=== PATIENT | female | born 1995 | race Caucasian/White ===

== ENCOUNTER 2016-10-17 17:40 | Emergency (ER) | payer OTHER ==
[2016-10-17 18:49] LABS: Urine Bacteria Absent (Absent); Urine Bilirubin Negative (Negative); Urine Glucose Negative (Negative); Urine Nitrite Positive (Negative)
[2016-10-17] MEDS ORDERED: Phenazopyridine TAB* 100 MG PO ONE (22:59)
[2016-10-17] MEDS ORDERED: NS 0.9% 1000 ML* 1,000 ML IV ONE (23:26)
[2016-10-17] MEDS ORDERED: Ondansetron INJ* 2 MG/ML VIAL IV ONE (23:28)
[2016-10-18 00:41] LABS: Hematocrit 37 % (35-47); Hemoglobin 12.2 g/dl (12.0-16.0); Mean Corpuscular HGB Conc 33 g/dl (31-36); Mean Corpuscular Hemoglobin 29 pg (27-31); Mean Corpuscular Volume 88 fL (80-97); Mean Platelet Volume 9 um3 (7.4-10.4); Red Blood Count 4.21 10^6/ul (4.0-5.4); Red Cell Distribution Width 13 % (10.5-15)
[2016-10-18 00:59] LABS: ALT 8 U/L (7-52); AST 15 U/L (13-39); Alkaline Phosphatase 73 U/L (34-104); Anion Gap 7 mmol/L (2-11); BUN/Creatinine Ratio 22.4 (8-20); Blood Urea Nitrogen 17 mg/dL (6-24); C Reactive Protein 17.66 mg/L (< 5.00); CO2 Carbon Dioxide 24 mmol/L (22-32); Calcium 8.8 mg/dL (8.6-10.3); Chloride 103 mmol/L (101-111); EGFR African American 122.4 (>60); EGFR Non-African American 95.2 (>60); Globulin 2.8 g/dL (2-4); Glucose 102 mg/dL (70-100); Lipase 17 U/L (11.0-82.0); Potassium 3.4 mmol/L (3.5-5.0); Sodium 134 mmol/L (133-145); Total Protein 6.8 g/dL (6.4-8.9)
[2016-10-18] MEDS ORDERED: Ciprofloxacin TAB* 500 MG PO ONE (01:51)
[2016-10-18] MEDS ORDERED: Ketorolac INJ* 30 MG/ML 1 ML VIAL IV PUSH ONE (01:51)
[2016-10-18 02:09] VITALS: BP 105/56
--- NOTE | 2016-10-18 08:01 | RAD ---
CLINICAL HISTORY: Dysuria, left flank pain COMPARISON: CT dated December 12, 2009 TECHNIQUE: Multiple contiguous axial CT scans were obtained of the abdomen and pelvis, without intravenous contrast enhancement. Coronal and sagittal multiplanar reformations are submitted for review. Oral contrast was not administered. The study is limited by the lack of intravenous contrast. This limits evaluation of the solid organs and vasculature. FINDINGS: LUNG BASES: The lung bases are clear. LIVER: The liver is normal in shape, size, contour, and attenuation. BILE DUCTS: There is no intrahepatic or extrahepatic biliary dilatation. GALLBLADDER: The gallbladder is normal, without pericholecystic inflammatory change. PANCREAS: The pancreas is normal, without mass or ductal dilatation. SPLEEN: Normal in size and appearance. UPPER GI TRACT: Evaluation of the gastrointestinal tract is limited by incomplete gastric distention. The upper GI tract is unremarkable. SMALL BOWEL AND MESENTERY: The small bowel is normal in contour, course, and caliber. There is no obstruction or dilatation. COLON: The colon is normal in contour, course, caliber. There is no pericolonic inflammatory change. There is large amount of stool within the colon. There is a tubular, vermiform, hollow viscus that is blind ending, and originates from the cecum, consistent with a normal appendix. There is no periappendiceal inflammatory change. This is best seen on coronal images 30 through 34. ADRENALS: Normal bilaterally. KIDNEYS: The kidneys are normal in shape, size, contour, and axis. There is no hydronephrosis or nephrolithiasis. BLADDER: The bladder is smooth in contour. PELVIC ORGANS: The uterus and adnexa are grossly normal for technique. An IUD is noted. Based on the pottery machine operator film, this appears to be malpositioned lying transversely within the endometrial cavity. AORTA: The aorta is normal. IVC: Unremarkable LYMPH NODES: There is no lymphadenopathy by size criteria. ABDOMINAL WALL: There is no evidence for abdominal wall hernia. BONES AND SOFT TISSUES: The bones and soft tissues are unremarkable. OTHER: None IMPRESSION: NO HYDRONEPHROSIS OR NEPHROLITHIASIS. MALPOSITIONED IUD
--- NOTE | 2016-10-19 09:50 | PN ---
Progress Note - Progress Note Date of Service: 10/19/16 Note: Patient urine culture grew E coli >100,000. patient placed on cipro will wait for final culture.
--- NOTE | 2016-10-21 10:18 | PN ---
Progress Note - Progress Note Date of Service: 10/21/16 Note: patient final culture shows that cipro is sensitive so no further action needed
== END 2016-10-18 02:09 | disposition home or self-care (01) ==
LOC: ED 17:40
DX: R10.84 Generalized abdominal pain (principal); R30.0 Dysuria
CPT/HCPCS: 36415; 74176; 80053; 81003; 81015; 83605; 83690; 84702; 85025; 86140; 87040; 87077; 87086; 87186; 96374; 96375; 99283; A9270-GY; J1885; J2405

== ENCOUNTER 2017-01-23 20:38 | Emergency (ER) | payer OTHER ==
[2017-01-23 23:09] LABS: Hematocrit 39 % (35-47); Hemoglobin 13.2 g/dl (12.0-16.0); Mean Corpuscular HGB Conc 34 g/dl (31-36); Mean Corpuscular Hemoglobin 29 pg (27-31); Mean Corpuscular Volume 85 fL (80-97); Mean Platelet Volume 9 um3 (7.4-10.4); Red Blood Count 4.63 10^6/ul (4.0-5.4); Red Cell Distribution Width 14 % (10.5-15); White Blood Count 7.7 10^3/ul (3.5-10.8)
[2017-01-23] MEDS: NS 0.9% 1000 ML* 2,000 ML IV ONE (23:09)
[2017-01-23 23:34] VITALS: BP 117/63
[2017-01-23 23:50] LABS: ALT 12 U/L (7-52); AST 18 U/L (13-39); Albumin 4.2 g/dL (3.2-5.2); Alkaline Phosphatase 65 U/L (34-104); Anion Gap 8 mmol/L (2-11); BUN/Creatinine Ratio 18.6 (8-20); Blood Urea Nitrogen 16 mg/dL (6-24); CO2 Carbon Dioxide 24 mmol/L (22-32); Calcium 8.9 mg/dL (8.6-10.3); Chloride 108 mmol/L (101-111); EGFR African American 106.1 (>60); EGFR Non-African American 82.5 (>60); Globulin 2.8 g/dL (2-4); Glucose 91 mg/dL (70-100); Potassium 3.6 mmol/L (3.5-5.0); Sodium 140 mmol/L (133-145)
[2017-01-24] MEDS ORDERED: Ibuprofen TAB* 600 MG PO ONE (00:06)
--- NOTE | 2017-01-24 00:47 | ED ---
Yvonne Mckeon Rebecca, scribed for [employer] on 01/23/17 at 2158 . Syncope/Near Syncope - HPI Summary HPI Summary: Pt is a 21 y/o F who presents to ED s/p syncopal episode. At approximately 2000 tonight while at work, the pt had sudden onset LOC. Per EMS, pt was unconscious for approximately 5 minutes. 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 Pt c/o L-sided neck, lumbar and umbilical abdominal pain. Reports that associated pain is currently moderate, ranked 5/10 and characterized as an ache. Reports that she has been ill recently c/o N/V/D and low-grade subjective fever. Denies CP. - History Of Current Complaint Chief Complaint: EDSyncope Time Seen by Provider: 01/23/17 21:35 Hx Obtained From: Patient Onset/Duration: Resolved Context: Witnessed - Coworkers, Loss Of Consciousness Associated Head Trauma: Yes Aggravating Factor(s): Nothing Alleviating Factor(s): Spontaneous Resolution Associated Signs And Symptoms: Pain - L-sided neck, lumbar and umbilical abdominal pain, Vomiting - Allergies/Home Medications Allergies/Adverse Reactions: Allergies Allergy/AdvReac Type Severity Reaction Status Date / Time Midazolam [From Versed] Allergy Severe Anaphylatic Verified 05/29/15 16:25 Shock Acetaminophen [From Vicodin] Allergy Hives Verified 05/29/15 16:25 Chlorpheniramine Allergy Hives Verified 05/29/15 16:25 [From Cheracol Plus] Codeine Allergy Hives Verified 05/29/15 16:25 Dextromethorphan Allergy Hives Verified 05/29/15 16:25 [From Cheracol Plus] Ethanol [From Cheracol-D] Allergy Hives Verified 05/29/15 16:25 Guaifenesin [From Cheracol-D] Allergy Hives Verified 05/29/15 16:25 Hydrocodone [From Vicodin] Allergy Hives Verified 05/29/15 16:25 Phenylpropanolamine Allergy Hives Verified 05/29/15 16:25 [From Cheracol Plus] Tramadol Allergy Swelling Verified 05/29/15 16:25 Of Face,Lips,& Throat PMH/Surg Hx/FS Hx/Imm Hx Endocrine/Hematology History: Denies: Hx Diabetes, Hx Thyroid Disease Cardiovascular History: Denies: Hx Hypertension, Hx Pacemaker/ICD Respiratory History: Reports: Hx Asthma, Hx Pneumonia Denies: Hx Chronic Obstructive Pulmonary Disease (COPD) GI History: Denies: Hx Ulcer History: Denies: Hx Renal Disease Sensory History: Denies: Hx Contacts or Glasses, Hx Hearing Aid Opthamlomology History: Denies: Hx Contacts or Glasses Neurological History: Reports: Hx Seizures, Other Neuro Impairments/Disorders - post concussion syndrome with seizure like activity Psychiatric History: Denies: Hx Panic Disorder - Surgical History Surgery Procedure, Year, and Place: t&a, acl reconstruction RIGHT KNEE - Immunization History Date of Tetanus Vaccine: UTD Infectious Disease History: No Infectious Disease History: Denies: Hx Hepatitis, Hx Human Immunodeficiency Virus (HIV), Traveled Outside the [place] in Last 30 Days - Family History Family History: copd. asthma - Social History Alcohol Use: None Substance Use Type: Reports: None Smoking Status (MU): Never Smoked Tobacco Review of Systems Positive: Fever - Low-grade subjective Negative: Chest Pain Positive: Abdominal Pain - Umbilical, Vomiting, Diarrhea, Nausea Positive: Other - L-sided neck and lumbar back pain Positive: Syncope - Positive LOC with assoicated head trauma All Other Systems Reviewed And Are Negative: Yes Physical Exam - Summary Physical Exam Summary: Appearance: Well appearing, no pain distress Skin: warm, dry, reflects adequate perfusion Head/face: normal Eyes: EOMI, KIM ENT: normal Neck: supple, nontender Respiratory: CTA, breath sounds present Cardiovascular: RRR, pulses symmetrical Abdomen: nontender, soft Bowel: present Musculoskeletal: normal, strength/ROM intact Neuro: normal, sensory motor intact, A&Ox3 Triage Information Reviewed: Yes Vital Signs On Initial Exam: Initial Vitals Temp Pulse Resp BP Pulse Ox 98.3 F 88 16 138/65 100 01/23/17 20:48 01/23/17 20:48 01/23/17 20:48 01/23/17 20:48 01/23/17 20:48 Vital Signs Reviewed: Yes - Maia Coma Scale Best Eye Response: 4 - Spontaneous Best Motor Response: 6 - Obeys Commands Best Verbal Response: 5 - Oriented Coma Scale Total: 15 Diagnostics - Vital Signs Vital Signs Temp Pulse Resp BP Pulse Ox 01/23/17 20:48 98.3 F 88 16 138/65 100 - Laboratory Result Diagrams: 01/23/17 22:57 01/23/17 22:57 Lab Statement: Any lab studies that have been ordered have been reviewed, and results considered in the medical decision making process. - CT CT Brain CT Interpretation: No Acute Changes - No acute brain parenchymal abnormality. No hemorrhage, mass or acute territorial infarct. No skull fracture. Clear visualized paranasal sinuses. Visualized mastoid air cells clear. ED physician reviewed radiology report and agrees. CT Interpretation Completed By: Radiologist CT C-Spine CT Interpretation: No Acute Changes - No acute fracture or malalignment. Multilevel sponylosis. ED physician reivewed radiology report and agrees. CT Interpretation Completed By: Radiologist - EKG 215 Cardiac Rate: NL - 93 bpm EKG Rhythm: Sinus Rhythm EKG Interpretation: No acute changes Re-Evaluation - Re-Evaluation First Eval Re-Evaluation Time: 00:04 Comment: Discussing results and plan to D/C pt Course/Dx Assessment/Plan: Pt is a 21 y/o F who presents to ED s/p syncopal episode of sudden onset LOC at approximately 2000 tonight while at work. Per EMS, pt was unconscious for approximately 5 minutes. 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 Pt c/o moderate L-sided neck, lumbar and umbilical abdominal pain with pain characterized as an ache. Reports that she has been ill recently c/o N/V/D and low-grade subjective fever. Denies CP. Brain CT and C -Spine CT reveal no acute findings. EKG is sinus rhythm with no acute changes. In the ED course, pt received Ibuprofen and fluids. She will be D/C to home with Dx of hea dinjury and syncope with Rx for Motrin and a follow up with her PCP. She understands and agrees. Allergies noted. Elevated BP noted and advised to f/u with PCP. - Diagnoses Provider Diagnoses: Syncope, Head injury Discharge - Discharge Plan Condition: Stable Disposition: HOME Prescriptions: Ibuprofen TAB* [Motrin TAB* 600 MG] 600 mg PO Q8H PRN #20 tab MDD 3 PRN Reason: Pain Patient Education Materials: Syncope (ED), Head Injury (ED) Referrals: Shilo Ayala MD [Primary Care Provider] - 3 Days The documentation as recorded by the Yvonne mahoney Rebecca accurately reflects the service I personally performed and the decisions made by me, Fan Horner.
--- NOTE | 2017-01-24 08:06 | RAD ---
HISTORY: Head injury, syncope, fall COMPARISONS: Head CT dated November 12, 2005 TECHNIQUE: Multiple contiguous axial CT scans were obtained of the head without intravenous contrast. FINDINGS: HEMORRHAGE/INFARCT: There is no hemorrhage or acute infarct. MASSES/SHIFT: There is no mass or shift. EXTRA-AXIAL SPACES: There are no extra-axial fluid collections. SULCI AND VENTRICLES: The sulci and ventricles are normal in size and position for the patient's stated age. CEREBRUM: There are no focal parenchymal abnormalities. BRAINSTEM: There are no focal parenchymal abnormalities. CEREBELLUM: There are no focal parenchymal abnormalities. VESSELS: The vessels are grossly normal. PARANASAL SINUSES: The paranasal sinuses are clear. ORBITS: The orbits are unremarkable. BONES AND SOFT TISSUE: No bone or soft tissue abnormalities are noted. OTHER: None IMPRESSION: NO ACUTE INTRACRANIAL PATHOLOGY.
--- NOTE | 2017-01-24 08:08 | RAD ---
HISTORY: Fall, syncope, neck pain, trauma COMPARISONS: None TECHNIQUE: Multiple contiguous axial CT scans were obtained of the cervical spine without intravenous contrast, with coronal and sagittal multiplanar reformations. FINDINGS: BRAIN: The visualized brain is unremarkable CENTRAL CANAL: Evaluation of the central canal is limited on CT technique, however there is no obvious canalicular mass or epidural hemorrhage. ALIGNMENT: The alignment is normal, without subluxation or dislocation. VERTEBRAL BODIES: The odontoid process is intact. The atlantoaxial intervals are symmetric. The vertebral bodies are normal in attenuation, without fracture. JOINTS: There is no subluxation or dislocation MUSCULATURE: Unremarkable INTERVERTEBRAL DISCS: There is diffuse loss of intervertebral disc height. AXIAL IMAGES: On axial images, there is no osseous neural foraminal narrowing or central canal stenosis. SOFT TISSUES: The visualized soft tissues of the neck are unremarkable. The prevertebral fat stripe is preserved. OTHER: None. IMPRESSION: MILD DEGENERATIVE DISC DISEASE. NO ACUTE OSSEOUS INJURY TO THE CERVICAL SPINE
== END 2017-01-24 00:31 | disposition home or self-care (01) ==
LOC: ED 20:38
DX: S09.90XA Unspecified injury of head, initial encounter (principal); M50.320 Other cervical disc degeneration, mid-cervical region, unspecified level; R55 Syncope and collapse; R11.2 Nausea with vomiting, unspecified; R19.7 Diarrhea, unspecified; X58.XXXA Exposure to other specified factors, initial encounter; Y93.9 Activity, unspecified; Y92.9 Unspecified place or not applicable
CPT/HCPCS: 36415; 70450; 72125; 80053; 83735; 84484; 84702; 85025; 93005; 99283; A9270-GY

== ENCOUNTER 2017-04-03 11:07 | Emergency (ER) | payer OTHER | END 2017-04-03 15:07 | disposition left against medical advice (07) | LOC: UCEAST 11:07 | DX: R05 Cough (principal); Z53.21 Procedure and treatment not carried out due to patient leaving prior to being seen by health care provider ==

== ENCOUNTER 2017-04-04 10:00 | Emergency (ER) | payer OTHER, MEDICAID ==
[2017-04-04 10:41] VITALS: BP 127/65
--- NOTE | 2017-04-04 11:16 | UC ---
Respiratory Complaint HPI - HPI Summary HPI Summary: Pt presents with a cough. She tells me that she developed a dry cough about 1 week ago that, over the last 2-3 days, has progressed to a productive cough. She feels as though she cannot "get a good breath" and is coughing "non-stop". She has vomiting once from coughing so much. She denies fever, chills, sinus symptoms, ST, chest pain, abdominal pain, N/D/C. She does have an albuterol inhaler at home, but it has been empty for some time. - History of Current Complaint Chief Complaint: UCRespiratory Stated Complaint: CONGESTED,COUGH Time Seen by Provider: 04/04/17 11:09 Hx Obtained From: Patient Hx Last Menstrual Period: 05/19/15 Onset/Duration: Gradual Onset Severity Initially: Mild Severity Currently: Moderate Character: Cough: Productive - Allergies/Home Medications Allergies/Adverse Reactions: Allergies Allergy/AdvReac Type Severity Reaction Status Date / Time Midazolam [From Versed] Allergy Severe Anaphylatic Verified 04/04/17 10:41 Shock Acetaminophen [From Vicodin] Allergy Hives Verified 04/04/17 10:41 Chlorpheniramine Allergy Hives Verified 04/04/17 10:41 [From Cheracol Plus] Codeine Allergy Hives Verified 04/04/17 10:41 Dextromethorphan Allergy Hives Verified 04/04/17 10:41 [From Cheracol Plus] Ethanol [From Cheracol-D] Allergy Hives Verified 04/04/17 10:41 Guaifenesin [From Cheracol-D] Allergy Hives Verified 04/04/17 10:41 Hydrocodone [From Vicodin] Allergy Hives Verified 04/04/17 10:41 Phenylpropanolamine Allergy Hives Verified 04/04/17 10:41 [From Cheracol Plus] Tramadol Allergy Swelling Verified 04/04/17 10:41 Of Face,Lips,& Throat PMH/Surg Hx/FS Hx/Imm Hx Previously Healthy: Yes Respiratory History: Asthma - Surgical History Surgical History: Yes Surgery Procedure, Year, and Place: t&a. acl reconstruction RIGHT KNEE - Family History Known Family History: Positive: None Family History: copd. asthma - Social History Occupation: Employed Full-time Lives: With Family Alcohol Use: None Substance Use Type: None Smoking Status (MU): Never Smoked Tobacco Review of Systems Constitutional: Negative Skin: Negative Eyes: Negative ENT: Negative Respiratory: Cough Cardiovascular: Negative Gastrointestinal: Negative Neurological: Negative Psychological: Negative All Other Systems Reviewed And Are Negative: Yes Physical Exam Triage Information Reviewed: Yes Appearance: Well-Appearing, Well-Nourished Vital Signs: Initial Vital Signs Temp 97.9 F 04/04/17 10:38 Pulse 105 04/04/17 10:38 Resp 18 04/04/17 10:38 BP 127/65 04/04/17 10:38 Pulse Ox 100 04/04/17 10:38 Vital Signs Reviewed: Yes Eyes: Positive: Conjunctiva Clear. Negative: Conjunctiva Inflamed, Discharge ENT: Positive: Hearing grossly normal, Pharynx normal, TMs normal, Uvula midline. Negative: Pharyngeal erythema, Nasal congestion, Nasal drainage, TM bulging, TM dull, TM red, Tonsillar swelling, Tonsillar exudate, Muffled voice, Hoarse voice, Sinus tenderness Neck: Positive: Supple, Nontender, No Lymphadenopathy Respiratory: Positive: Chest non-tender, No respiratory distress, No accessory muscle use, Decreased breath sounds - Throughout but RLL > Left, Wheezing - Throughout. Negative: Crackles, Rhonchi Cardiovascular: Positive: RRR, No Murmur, Pulses Normal Neurological: Positive: Alert. Negative: Fatigued Psychological: Positive: Age Appropriate Behavior Skin: Negative: rashes UC Diagnostic Evaluation - Laboratory O2 Sat by Pulse Oximetry: 100 Re-Evaluation - Re-Evaluation First Eval Re-Evaluation Time: 11:30 Change: Improved Comment: S/p duoneb. Lung sounds improved, but still with diffuse wheezing. Pt reported that her lungs felt "less tight" Respiratory Course/Dx - Course Course Of Treatment: CXR - negative. Duoneb - Lung sounds improved, but still with diffuse wheezing. Pt reported that her lungs felt "less tight". I would like to refill her albuterol inhaler and place her on a steroid for potential bronchitis vs asthma exacerbation - however she tells me that she has a history of hypokalemia. Will rx for albuterol and doxycycline to cover any atypical organisms and have her f/u with her PCP next week if her symptoms worsen or do not improve in 48 hours. - Differential Dx/Diagnosis Differential Diagnosis/HQI/PQRI: Asthma, Bronchitis, Influenza, Lower Resp Infection Provider Diagnoses: Asthma exacerbation Discharge - Discharge Plan Condition: Stable Disposition: HOME Prescriptions: Albuterol HFA INHALER* [Ventolin HFA Inhaler*] 1 - 2 puff INH Q6H PRN #1 mdi PRN Reason: Wheezing DOXYcycline CAP(*) [DOXYcycline 100MG CAP(*)] 100 mg PO BID #14 cap Patient Education Materials: Acute Bronchitis (ED) Referrals: No Primary Care Phys,NOPCP [Primary Care Provider] - Additional Instructions: If you develop a fever, SOB, chest pain, new or worsening symptoms - please call your PCP or go to the ED.
--- NOTE | 2017-04-04 11:42 | RAD ---
INDICATION: Cough COMPARISON: None TECHNIQUE: PA and lateral dual-energy views were obtained. FINDINGS: Bones/Soft Tissues: There are no acute bony findings. Cardiomediastinal: The cardiomediastinal silhouette is normal. Lungs: There are no infiltrates. Pleura: There are no pleural effusions. Other: None IMPRESSION: NEGATIVE EXAMINATION.
[2017-04-04] MEDS ORDERED: Albuterol/Ipratropium NEB.SOL* Albuterol 2.5 MG/Ipratropium 0.5 MG 3 ML INH ONE (11:44)
== END 2017-04-04 12:27 | disposition home or self-care (01) ==
LOC: UCEAST 10:00
DX: J45.901 Unspecified asthma with (acute) exacerbation (principal)
CPT/HCPCS: 71020; 99212; A9270-GY; G0463

== ENCOUNTER 2017-04-23 12:15 | Emergency (ER) | payer MEDICAID, OTHER ==
--- NOTE | 2017-04-23 14:12 | UC ---
Abdominal Pain Female HPI - HPI Summary HPI Summary: 21 y/o female presents with RUQ pain that started 2 days ago after eating. She tells me that 2 days ago she at a [employer] meal, soon thereafter developed RUQ "cramping" and "gnawing" pain. She has never had this before. Since that time, every time she eats, she feels nauseous and has various degrees of this pain in her RUQ. When she has this pain after eating, the pain is most severe for the next 30minutes to an hour and then will subside to dull ache/cramp. Her bowel movements have been regular, no constipation or loose stools, and do not change her pain. She denies fever, chills, dizziness, headache, SOB, chest pain, vomiting, constipation, diarrhea, dysuria, or recent illness. No history of abdominal surgeries or gallstones. - History of Current Complaint Chief Complaint: UCGeneralIllness Stated Complaint: ABD PAIN Time Seen by Provider: 04/23/17 14:11 Hx Obtained From: Patient Hx Last Menstrual Period: 05/19/15 Onset/Duration: Sudden Onset Timing: Constant Severity Initially: Moderate Severity Currently: Moderate Pain Intensity: 6 Pain Scale Used: 0-10 Numeric Location: Discrete At: RUQ Character: Colicy, Cramping Aggravating Factor(s): Food Alleviating Factor(s): Spontaneous Resolution, NPO Allergies/Adverse Reactions: Allergies Allergy/AdvReac Type Severity Reaction Status Date / Time Midazolam [From Versed] Allergy Severe Anaphylatic Verified 04/23/17 12:29 Shock Acetaminophen [From Vicodin] Allergy Hives Verified 04/23/17 12:29 Chlorpheniramine Allergy Hives Verified 04/23/17 12:29 [From Cheracol Plus] Codeine Allergy Hives Verified 04/23/17 12:29 Dextromethorphan Allergy Hives Verified 04/23/17 12:29 [From Cheracol Plus] Ethanol [From Cheracol-D] Allergy Hives Verified 04/23/17 12:29 Guaifenesin [From Cheracol-D] Allergy Hives Verified 04/23/17 12:29 Hydrocodone [From Vicodin] Allergy Hives Verified 04/23/17 12:29 Phenylpropanolamine Allergy Hives Verified 04/23/17 12:29 [From Cheracol Plus] Tramadol Allergy Swelling Verified 04/23/17 12:29 Of Face,Lips,& Throat PMH/Surg Hx/FS Hx/Imm Hx Previously Healthy: Yes Respiratory History: Asthma - Surgical History Surgical History: Yes Surgery Procedure, Year, and Place: t&a. acl reconstruction RIGHT KNEE - Family History Known Family History: Positive: None Family History: copd. asthma - Social History Occupation: Employed Full-time Lives: With Family Alcohol Use: None Substance Use Type: None Smoking Status (MU): Never Smoked Tobacco Review of Systems Constitutional: Negative Skin: Negative Respiratory: Negative Cardiovascular: Negative Gastrointestinal: Abdominal Pain - RUQ Genitourinary: Negative Musculoskeletal: Negative Neurological: Negative Psychological: Negative All Other Systems Reviewed And Are Negative: Yes Physical Exam Triage Information Reviewed: Yes Appearance: Well-Appearing, No Pain Distress, Well-Nourished Vital Signs: Initial Vital Signs Temp 97.8 F 04/23/17 12:30 Pulse 101 04/23/17 12:30 Resp 18 04/23/17 12:30 BP 118/66 04/23/17 12:30 Pulse Ox 100 04/23/17 12:30 Vital Signs Reviewed: Yes Neck: Positive: Supple, Nontender, No Lymphadenopathy Respiratory: Positive: Chest non-tender, Lungs clear, Normal breath sounds, No respiratory distress, No accessory muscle use Cardiovascular: Positive: RRR, No Murmur, Pulses Normal Abdomen Description: Positive: No Organomegaly, Soft, Other: - RUQ TTP. Crouch' s sign positive.. Negative: CVA Tenderness (R), CVA Tenderness (L), Distended, Guarding, Hepatomegaly, McBurney's Point Tenderness, Peritoneal Signs, Pulsatile Mass, Splenomegaly Bowel Sounds: Positive: Present Neurological: Positive: Alert Psychological: Positive: Age Appropriate Behavior Skin: Positive: Other - No ecchymosis, erythema, rashes, or significant lesions on the abdomen. Abd Pain Female Course/Dx - Course Course Of Treatment: I suspect she is suffering from biliary colic. I discussed with her the potential treatment options such as conservative care, gallstone mediations, and surgical removal. However, first she would need confirmation, likely by ultrasound, and evaluation by general surgery. Ultrasound is unavailable at this location at this time. Since she is afebrile, stable and is not in current distress - Will refer to general surgery and have her follow up there. If symptoms persist or worsen - to go to the ED. - Differential Dx/Diagnosis Differential Diagnosis: Gall Bladder Disease, Peptic Ulcer Disease Provider Diagnoses: Biliary colic Discharge - Discharge Plan Condition: Stable Disposition: HOME Patient Education Materials: Biliary Colic (ED) Referrals: No Primary Care Phys,NOPCP [Primary Care Provider] - Eleno Turcios MD [Medical Doctor] - As Soon As Possible Additional Instructions: If you develop a fever, shortness of breath, chest pain, new or worsening symptoms - please call your PCP or go to the ED. 1) Please avoid fatty foods such as butter, oils, or friend substances. These may cause your symptoms to worsen. 2) Tylenol OTC for pain/discomfort 3) Please call the number below to schedule a follow up appointment with the General Surgeon in regards to your RUQ pain. 4) If you develop fever, vomiting, increased pain, or inability to retain food/ drink - please go directly to the ER.
[2017-04-23 14:30] VITALS: BP 118/63
== END 2017-04-23 14:30 | disposition home or self-care (01) ==
LOC: UCEAST 12:15
DX: K80.50 Calculus of bile duct without cholangitis or cholecystitis without obstruction (principal); Z88.5 Allergy status to narcotic agent; Z88.8 Allergy status to other drugs, medicaments and biological substances; Z88.4 Allergy status to anesthetic agent
CPT/HCPCS: 87502; 99212; G0463

== ENCOUNTER 2017-05-14 12:53 | Emergency (ER) | payer OTHER ==
[2017-05-14 13:30] VITALS: BP 119/70
--- NOTE | 2017-05-14 13:43 | UC ---
Upper Extremity HPI - HPI Summary HPI Summary: 21F presents with left wrist pain for three weeks. She was lifting someone out of the car with her left wrist under his arm. She states since then she has walton pain over the radial side of the wrist over her thumb with swelling there. She is right handed. She denies any numbness or tingling. She denies any previous injury to the area. She states her thumb has been popping when tries to move it toward ulnar aspect. - History of Current Complaint Chief Complaint: UCUpperExtremity Stated Complaint: LEFT WRIST INJURY Time Seen by Provider: 05/14/17 13:25 Hx Last Menstrual Period: PRESENT Pain Intensity: 6 - Allergies/Home Medications Allergies/Adverse Reactions: Allergies Allergy/AdvReac Type Severity Reaction Status Date / Time Midazolam [From Versed] Allergy Severe Anaphylatic Verified 05/14/17 13:30 Shock Acetaminophen [From Vicodin] Allergy Hives Verified 05/14/17 13:30 Chlorpheniramine Allergy Hives Verified 05/14/17 13:30 [From Cheracol Plus] Codeine Allergy Hives Verified 05/14/17 13:30 Dextromethorphan Allergy Hives Verified 05/14/17 13:30 [From Cheracol Plus] Ethanol [From Cheracol-D] Allergy Hives Verified 05/14/17 13:30 Guaifenesin [From Cheracol-D] Allergy Hives Verified 05/14/17 13:30 Hydrocodone [From Vicodin] Allergy Hives Verified 05/14/17 13:30 Phenylpropanolamine Allergy Hives Verified 05/14/17 13:30 [From Cheracol Plus] Tramadol Allergy Swelling Verified 05/14/17 13:30 Of Face,Lips,& Throat PMH/Surg Hx/FS Hx/Imm Hx Endocrine History: Other Other Endocrine History: no DM Cardiovascular History: Other Other Cardiovascular History: no HTN - Surgical History Surgical History: Yes Surgery Procedure, Year, and Place: t&a. acl reconstruction RIGHT KNEE - Family History Known Family History: Positive: None Family History: copd. asthma - Social History Alcohol Use: None Substance Use Type: None Smoking Status (MU): Never Smoked Tobacco Review of Systems Constitutional: Negative Musculoskeletal: Decreased ROM - left wrist All Other Systems Reviewed And Are Negative: Yes Physical Exam Triage Information Reviewed: Yes Appearance: Well-Appearing Vital Signs: Initial Vital Signs Temp 98.1 F 05/14/17 13:24 Pulse 80 05/14/17 13:24 Resp 18 05/14/17 13:24 BP 119/70 05/14/17 13:24 Pulse Ox 100 05/14/17 13:24 Vital Signs Reviewed: Yes ENT Exam: Normal Respiratory: Positive: Lungs clear, Normal breath sounds Cardiovascular: Positive: RRR Musculoskeletal: Positive: ROM Limited @ - towards ulnar aspect of wrist, Other : - tenderness over radial aspect of left wrist, pos uday, good pulses, sensation grossly intact, capillary refill<2 secs Neurological Exam: Normal Psychological Exam: Normal Skin Exam: Normal Diagnostics - Radiology wrist Xray Interpretation: No Acute Changes Radiology Interpretation Completed By: ED Physician Upper Extremity Course/Dx - Course Course Of Treatment: 21F presents with left wrist pain for three weeks. She was lifting someone out of the car with her left wrist under his arm. She states since then she has walton pain over the radial side of the wrist over her thumb with swelling there. She is right handed. She denies any numbness or tingling. She denies any previous injury to the area. She states her thumb has been popping when tries to move it toward ulnar aspect. on exam tenderness over radial aspect of left wrist. neurovascular intact. pos uday test. neg snuff box tenderness. xray normal. will treat with thumb spica and gave referral to ortho. medication reviewed. patient understand and agrees with plan. - Differential Dx/Diagnosis Differential Diagnosis/HQI/PQRI: Fracture (Closed), Strain, Sprain Provider Diagnoses: de Quervain tendiopathy Discharge - Discharge Plan Condition: Good Disposition: HOME Patient Education Materials: De Quervain Disease (ED) Referrals: [facility]FERRAL [Outside] Karla Emerson MD [Medical Doctor] - Additional Instructions: Keep splint on area Take Tylenol or ibuprofen every 6 hours as needed for pain Apply ice, rest, elevate Follow up with ortho Return to ED if develop any new or worsening symptoms
--- NOTE | 2017-05-14 14:03 | RAD ---
INDICATION: Left wrist pain COMPARISON: None TECHNIQUE: AP, lateral, and oblique views were obtained. FINDINGS: The bony structures, joint spaces, and soft tissues are normal for age. IMPRESSION: NEGATIVE EXAMINATION.
== END 2017-05-14 14:11 | disposition home or self-care (01) ==
LOC: UCCORT 12:53
DX: M65.4 Radial styloid tenosynovitis [de Quervain] (principal)
CPT/HCPCS: 99212; G0463

== ENCOUNTER 2017-09-16 10:48 | Emergency (ER) | payer OTHER ==
[2017-09-16 11:04] VITALS: BP 119/62
--- NOTE | 2017-09-16 11:22 | UC ---
Complaint Female HPI - HPI Summary HPI Summary: Pelvic cramping for about a week. Mild white milky discharge. She is about 10 weeks into a dep[facility] LMP was august 11 and she took home which was positive. She denies fever, vomiting, diarrhea , urinary symptoms, pain with intercourse. She has a steady sexual partner. This is her 4th , one spontaneous misscarriage of twins and two children at home. NO prior abd surgery. Prior chlamydia in a prior relationship. - History Of Current Complaint Chief Complaint: UCGU Stated Complaint: CRAMPING Time Seen by Provider: 09/16/17 11:07 Hx Obtained From: Patient Hx Last Menstrual Period: 08/11/17 Onset/Duration: Gradual Onset, Lasting Weeks Timing: Constant, Intermittent Severity Initially: Moderate Severity Currently: Moderate Pain Intensity: 7 Character: Cramping Aggravating Factor(s): Nothing Alleviating Factor(s): Nothing Associated Signs And Symptoms: Negative: Fever, Back Pain, Vaginal Bleeding/ Discharge, Vaginal Discharge, Nausea, Vomiting(# Of Episodes =), Genital Swelling, Genital Blisters, Retained Foregin Body (Specify) - Allergies/Home Medications Allergies/Adverse Reactions: Allergies Allergy/AdvReac Type Severity Reaction Status Date / Time acetaminophen [From Vicodin] Allergy Hives Verified 09/16/17 11:02 codeine Allergy Hives Verified 09/16/17 11:02 dextromethorphan Allergy Hives Verified 09/16/17 11:02 [From Cheracol D] guaifenesin [From Cheracol D] Allergy Hives Verified 09/16/17 11:02 hydrocodone [From Vicodin] Allergy Hives Verified 09/16/17 11:02 hydrocortisone Allergy Hives Verified 09/16/17 11:02 [From Hydrocortone] midazolam Allergy Anaphylatic Verified 09/16/17 11:02 Shock tramadol Allergy Swelling Verified 09/16/17 11:02 Of Face,Lips,& Throat PMH/Surg Hx/FS Hx/Imm Hx Previously Healthy: No - Surgical History Surgical History: Yes Surgery Procedure, Year, and Place: t&a. acl reconstruction RIGHT KNEE - Family History Known Family History: Positive: None Family History: copd. asthma - Social History Lives: With Family Alcohol Use: None Substance Use Type: None Smoking Status (MU): Never Smoked Tobacco Review of Systems Gastrointestinal: Abdominal Pain Genitourinary: Vaginal/Penile Discharge All Other Systems Reviewed And Are Negative: Yes Physical Exam Triage Information Reviewed: Yes Appearance: Well-Appearing, Well-Nourished, Pain Distress - She holds her periumbilical area at times. Vital Signs: Initial Vital Signs Temp 98.4 F 09/16/17 11:00 Pulse 102 09/16/17 11:00 Resp 15 09/16/17 11:00 BP 119/62 09/16/17 11:00 Pulse Ox 100 09/16/17 11:00 Vital Signs Reviewed: Yes Eyes: Positive: Conjunctiva Clear. Negative: Conjunctiva Inflamed ENT: Positive: Pharynx normal, Uvula midline Neck: Positive: Supple, Nontender, No Lymphadenopathy Respiratory: Positive: Lungs clear, Normal breath sounds, No respiratory distress, No accessory muscle use. Negative: Respiratory distress, Decreased breath sounds, Accessory muscle use, Crackles, Rhonchi, Stridor Cardiovascular: Positive: No Murmur, Pulses Normal Abdominal Exam: Other - there is tenderness without guarding of the periumbilical area. Abdomen Description: Positive: No Organomegaly, Soft. Negative: CVA Tenderness (R), CVA Tenderness (L), Distended, Guarding Pelvic Exam: Positive: External Exam Normal, Speculum Exam Normal, Bimanual Exam Normal, No Cerv. Motion Tender, No Masses. Negative: Active Bleeding, Cervicitis, Discharge, Mass, Tender w/ Cervical Motion, Tender Adnexa, Tender Uterus Musculoskeletal: Positive: Strength Intact, ROM Intact, No Edema Psychological Exam: Normal Psychological: Positive: Age Appropriate Behavior Skin: Negative: rashes Diagnostics - Radiology No standard instances Xray Interpretation: No Acute Changes Radiology Interpretation Completed By: Radiologist - possible early IUP Complaint Female Dx - Course Course Of Treatment: high risk ectopic due to unplanned with hx of chlamydia infection. HOwever, there is suggestion of IUP on ultrasound. To be sure, she will need repeat hcg and ultrasound in two days. We have called Dr. Saucedo's office who agrees to set up outpatient labs and ultrasound. Pt agrees that if this does not occur, she will report to pcp or ED or here for repeat testing. We will cover with antibiotics given cramping and higher risk history. Initial OB appt has also been made for 10/27 at 140pm. - Differential Dx/Diagnosis Provider Diagnoses: pelvic pain. early . rule out ectopic. Discharge - Sign-Out/Discharge Documenting (check all that apply): Discharge/Admit/Transfer - Discharge Plan Condition: Good Disposition: HOME Patient Education Materials: Pelvic Pain (ED) Referrals: No Primary Care Phys,NOPCP [Primary Care Provider] - Eleno Saucedo MD [Medical Doctor] - Additional Instructions: F/u with Dr. Saucedo on 10/27 and 1:40pm. - Billing Disposition and Condition Condition: GOOD Disposition: HOME
--- NOTE | 2017-09-16 12:21 | RAD ---
INDICATION: Early -5 weeks COMPARISON: None TECHNIQUE: Transvaginal scans were obtained for determination FINDINGS: There is an intrauterine gestational sac and pelvic sac. The sac size corresponds to 5 week 1 day gestation. There is no identification of the pole although this could be related to early age of the gestation. Suggest follow-up ultrasonography to assess for viability. The ovaries appear normal. The right ovary measures 3.6 x 2.1 x 2.2 cm and the left 3.1 x 2.0 x 2.7 cm. There is no separate adnexal mass There is no free fluid. IMPRESSION: PROBABLE EARLY INTRAUTERINE GESTATION. SUGGEST CORRELATION WITH SERIAL BETA HCGS AND FOLLOW-UP ULTRASONOGRAPHY TO ASSESS FOR VIABILITY
[2017-09-16] MEDS ORDERED: metroNIDAZOLE TAB* 250 MG PO ONE (12:28)
[2017-09-16] MEDS ORDERED: Azithromycin TAB* 250 MG PO ONE (12:29)
[2017-09-16] MEDS ORDERED: cefTRIAXone VIAL(*) 250 MG VIAL IM ONE (12:29)
[2017-09-16] MEDS ORDERED: Lidocaine 1%* 5 ML VIAL ONE (12:40)
[2017-09-16 19:00] LABS: ABS Basophils 0 10^3/ul (0-0.2); ABS Eosinophils 0 10^3/ul (0-0.6); ABS Lymphocytes 1.3 10^3/ul (1.0-4.8); ABS Monocytes 0.3 10^3/ul (0-0.8); ABS Neutrophils 3.6 10^3/ul (1.5-7.7); ABS Nucleated RBC 0 10^3/ul; Eosinophil % 0.8 % (0-6); Hematocrit 39 % (35-47); Hemoglobin 12.6 g/dl (12.0-16.0); Mean Corpuscular HGB Conc 33 g/dl (31-36); Mean Corpuscular Hemoglobin 28 pg (27-31); Mean Corpuscular Volume 85 fL (80-97); Mean Platelet Volume 8.9 um3 (7.4-10.4); Nucleated Red Blood Cells % 0; Platelet Count 245 10^3/ul (150-450); Red Blood Count 4.55 10^6/ul (4.0-5.4); Red Cell Distribution Width 15 % (10.5-15); White Blood Count 5.3 10^3/ul (3.5-10.8)
--- NOTE | 2017-09-17 07:46 | UC ---
- Progress Note Progress Note: Reviewed notes-intrauterine not seen on USS, has risk of ectopic. Her HCG is 4600. Advise that she should contact OB office to ensure that follow up USS and repeat BHCG done. Should have follow up tomorrow 09/18/17. Discharge - Sign-Out/Discharge Documenting (check all that apply): Discharge/Admit/Transfer - Discharge Plan Condition: Good Disposition: HOME Patient Education Materials: Pelvic Pain (ED) Referrals: Eleno Saucedo MD [Medical Doctor] - No Primary Care Phys,NOPCP [Primary Care Provider] - Additional Instructions: F/u with Dr. Saucedo on 10/27 and 1:40pm. - Billing Disposition and Condition Condition: GOOD Disposition: HOME
--- NOTE | 2017-09-18 11:01 | UC ---
- Progress Note Progress Note: (+) BV / garnderella -- needs to be on flagyl 500 mg PO BID for 7 days -- if not already taking then I can send in med f/u with OB as planned Discharge - Sign-Out/Discharge Documenting (check all that apply): Discharge/Admit/Transfer - Discharge Plan Condition: Good Disposition: HOME Patient Education Materials: Pelvic Pain (ED) Referrals: Eleno Saucedo MD [Medical Doctor] - No Primary Care Phys,NOPCP [Primary Care Provider] - Additional Instructions: F/u with Dr. Saucedo on 10/27 and 1:40pm. - Billing Disposition and Condition Condition: GOOD Disposition: HOME
--- NOTE | 2017-09-18 11:07 | UC ---
- Progress Note Progress Note: pt was treated with flagyl, rocephin and azithromycin -- no further treatment at this time and f/u with ACUTE CARE ASSISTANT/OB for her possible IUP Discharge - Sign-Out/Discharge Documenting (check all that apply): Discharge/Admit/Transfer - Discharge Plan Condition: Good Disposition: HOME Patient Education Materials: Pelvic Pain (ED) Referrals: Lewis ROMANO,Eleno [Medical Doctor] - No Primary Care Phys,NOPCP [Primary Care Provider] - Additional Instructions: F/u with Dr. Saucedo on 10/27 and 1:40pm. - Billing Disposition and Condition Condition: GOOD Disposition: HOME
--- NOTE | 2017-09-19 07:21 | UC ---
- Progress Note Progress Note: urine + Staph epidermidis sensitive to Cefazolin - will call in RX keflex if pt has not followed-up with OB as instructed please call pt for update lorraine 09/19/17 7:21 Discharge - Sign-Out/Discharge Documenting (check all that apply): Post-Discharge Follow Up - Discharge Plan Condition: Good Disposition: HOME Patient Education Materials: Pelvic Pain (ED) Referrals: Eleno Saucedo MD [Medical Doctor] - No Primary Care Phys,NOPCP [Primary Care Provider] - Additional Instructions: F/u with Dr. Saucedo on 10/27 and 1:40pm. - Billing Disposition and Condition Condition: GOOD Disposition: HOME
== END 2017-09-16 12:58 | disposition home or self-care (01) ==
LOC: UCCORT 10:48
DX: O26.899 Other specified pregnancy related conditions, unspecified trimester (principal); N76.0 Acute vaginitis; Z3A.00 Weeks of gestation of pregnancy not specified; R10.2 Pelvic and perineal pain; Z88.6 Allergy status to analgesic agent; Z88.5 Allergy status to narcotic agent; Z88.8 Allergy status to other drugs, medicaments and biological substances
CPT/HCPCS: 36415; 76817; 80053; 81003; 84144; 84443; 84702; 85025; 87077; 87086; 87186; 87480; 87491; 87510; 87591; 87661; 96372; 99213; A9270-GY; G0463; J0696

== ENCOUNTER 2018-06-14 02:52 | Emergency (ER) | payer OTHER ==
[~2018-06-14 02:52] MED LIST: NS 0.9% 1000 ML** 1,000 ML IV ONE
[2018-06-14] MEDS ORDERED: levETIRAcetam IV* 1,000 MG in NS 0.9% 100 ML* 100 ML IVPB ONE (02:53)
--- NOTE | 2018-06-14 02:57 | ED ---
Neurological HPI - HPI Summary HPI Summary: This patient is a 23 year old female brought in by ambulance to [facility] with a chief complaint of seizure since 1 hour ago. Patient has a hx of seizures and her last seizure was 2 months ago. Patient states that she is on Keppra and has been since her last seizure. Patient was reported to have gone into a full body seizure. When EMS arrived, patient was awake, but would not verbally respond. The pain is rated 5/10 in severity. Symptoms aggravated by nothing. Symptoms alleviated by nothing. Patient additionally reports headache. Patient denies chest pain, SOB, nausea. - History of Current Complaint Stated Complaint: SEIZURE Time Seen by Provider: 06/14/18 02:52 Hx Obtained From: Patient Hx Last Menstrual Period: 08/11/17 Onset/Duration: Started hours ago, Resolved Timing: Constant Current Severity: None Number of Seizures: 1 Pain Scale Used: 0-10 Numeric Character: Weak, Lethargy Seizure Character: Generalized Aggravating: Nothing Alleviating: Nothing Associated Signs and Symptoms: Positive: Negative - chest pain, SOB, nausea, Headache - Allergy/Home Medications Allergies/Adverse Reactions: Allergies Allergy/AdvReac Type Severity Reaction Status Date / Time acetaminophen [From Vicodin] Allergy Hives Verified 06/14/18 03:07 codeine Allergy Hives Verified 06/14/18 03:07 dextromethorphan Allergy Hives Verified 06/14/18 03:07 [From Cheracol D] guaifenesin [From Cheracol D] Allergy Hives Verified 06/14/18 03:07 hydrocodone [From Vicodin] Allergy Hives Verified 06/14/18 03:07 hydrocortisone Allergy Hives Verified 06/14/18 03:07 [From Hydrocortone] midazolam Allergy Anaphylatic Verified 06/14/18 03:07 Shock tramadol Allergy Swelling Verified 06/14/18 03:07 Of Face,Lips,& Throat PMH/Surg Hx/FS Hx/Imm Hx Previously Healthy: No Endocrine/Hematology History: Denies: Hx Diabetes, Hx Thyroid Disease Cardiovascular History: Denies: Hx Hypertension, Hx Pacemaker/ICD Respiratory History: Reports: Hx Asthma - MEDS NEEDED, Hx Pneumonia Denies: Hx Chronic Obstructive Pulmonary Disease (COPD) GI History: Denies: Hx Ulcer History: Denies: Hx Renal Disease Sensory History: Denies: Hx Contacts or Glasses, Hx Hearing Aid Opthamlomology History: Denies: Hx Contacts or Glasses Neurological History: Reports: Hx Seizures, 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 acl reconstruction RIGHT KNEE - Immunization History Date of Tetanus Vaccine: UTD Infectious Disease History: Denies: Hx Clostridium Difficile, Hx Hepatitis, Hx Human Immunodeficiency Virus (HIV), Hx of Known/Suspected MRSA, Hx Shingles, Hx Tuberculosis, Hx Known/ Suspected VRE, Hx Known/Suspected VRSA, History Other Infectious Disease - Family History Family History: copd. asthma - Social History Alcohol Use: None Hx Substance Use: No Substance Use Type: Reports: None Hx Tobacco Use: No Smoking Status (MU): Never Smoked Tobacco Review of Systems Negative: Fever Negative: Chest Pain Negative: Shortness Of Breath Negative: Nausea Neurological: Other - Seizure Positive: Headache All Other Systems Reviewed And Are Negative: Yes Physical Exam - Summary Physical Exam Summary: Appearance: Well appearing, but fatigued, no pain distress. Flat affect Skin: warm, dry, reflects adequate perfusion Head/face: normal Eyes: EOMI, KIM ENT: mucous membranes moist Neck: supple, non-tender Respiratory: CTA, breath sounds present Cardiovascular: RRR, pulses symmetrical Abdomen: non-tender, soft Bowel Sounds: present Musculoskeletal: normal, strength/ROM intact Neuro: normal, sensory motor intact, A&Ox3 Triage Information Reviewed: Yes Vital Signs Reviewed: Yes Diagnostics - Laboratory Result Diagrams: 06/14/18 03:03 06/14/18 03:03 Lab Statement: Any lab studies that have been ordered have been reviewed, and results considered in the medical decision making process. Course/Dx - Course Course Of Treatment: This patient is a 23 year old female brought in by ambulance to [facility] with a chief complaint of seizure since 1 hour ago. Patient has a hx of seizures and her last seizure was 2 months ago. Patient states that she is on Keppra and has been since her last seizure. 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 She has not used any alcohol. She has been taking her medication as prescribed at 500 mg twice daily. Generalized seizure while at work today. No injury. No joint pain. Loaded 1000 mg of IV Keppra and increase her outpatient dose to 700 mg twice daily. Patient's neurologist is from out of the area and cannot be reached. She was also given local neurologist at her request. She will call both today to schedule follow-up and appointment. - Differential Dx Differential Diagnoses Neuro: Positive: Other - Anaphylactic seizure, medication noncompliance, sleep deprivation - Diagnoses Provider Diagnoses: Epileptic seizure, Generalized seizure, Sleep deprivation Discharge - Sign-Out/Discharge Documenting (check all that apply): Patient Departure Patient Received Moderate/Deep Sedation with Procedure: No - Discharge Plan Condition: Improved Disposition: ADMITTED TO [facility] Patient Education Materials: Recurrent Seizures in Adults (ED) Forms: *Work Release Referrals: Eleno Velasquez MD [Medical Doctor] - No Primary Care Phys,NOPCP [Primary Care Provider] - Additional Instructions: Call today to schedule prompt follow up with Dr Franck Shetty (your Neurologist in [place]) AND call for an appt with local neurologist listed above as desired. DO NOT DRIVE until deemed safe by your doctor. You must get plenty of rest, avoid alcohol and take your medications as prescribed. Increase your Keppra to 750mg (1.5 tablets) twice daily. Return with repeat seizure, severe headaches, worse, new symptoms or other concerns. - Billing Disposition and Condition Condition: IMPROVED Disposition: Admitted to [facility] - Attestation Statements Document Initiated by Mari: Yes Documenting Scribe: Levy Marie Provider For Whom Mari is Documenting (Include Credential): Reece Prakash MD Scribe Attestation: Levy Mckeon, scribed for Reece Prakash MD on 06/14/18 at 0454. Scribe Documentation Reviewed: Yes Provider Attestation: The documentation as recorded by the Levy mahoney accurately reflects the service I personally performed and the decisions made by me, Reece Prakash MD Status of Scribe Document: Viewed
[2018-06-14 03:10] LABS: ABS Basophils 0 10^3/ul (0-0.2); ABS Eosinophils 0.1 10^3/ul (0-0.6); ABS Lymphocytes 1.7 10^3/ul (1.0-4.8); ABS Monocytes 0.5 10^3/ul (0-0.8); ABS Neutrophils 4.2 10^3/ul (1.5-7.7); ABS Nucleated RBC 0 10^3/ul; Eosinophil % 1.4 %; Hematocrit 36 % (35-47); Hemoglobin 11.8 g/dl (12.0-16.0); Lymphocyte % 26.6 %; Mean Corpuscular HGB Conc 33 g/dl (31-36); Mean Corpuscular Hemoglobin 29 pg (27-31); Mean Corpuscular Volume 86 fL (80-97); Mean Platelet Volume 8.1 fL (7.4-10.4); Nucleated Red Blood Cells % 0.1; Platelet Count 227 10^3/ul (150-450); Red Blood Count 4.14 10^6/ul (4.00-5.40); Red Cell Distribution Width 14 % (10.5-15); White Blood Count 6.5 10^3/ul (3.5-10.8)
[2018-06-14 03:25] LABS: Anion Gap 7 mmol/L (2-11); BUN/Creatinine Ratio 23.4 (8-20); Blood Urea Nitrogen 18 mg/dL (6-24); CO2 Carbon Dioxide 26 mmol/L (22-32); Calcium 9.4 mg/dL (8.6-10.3); Chloride 106 mmol/L (101-111); EGFR African American 111.4 (>60); EGFR Non-African American 92.1 (>60); Glucose 125 mg/dL (70-100); Potassium 3.8 mmol/L (3.5-5.0); Sodium 139 mmol/L (135-145)
[2018-06-14 03:32] LABS: HCG Pregnancy < 0.60 mIU/mL
[2018-06-14] MEDS: levETIRAcetam 500 MG IVPREMIX* 500 MG/100 ML BAG IV SCH ×2 (03:32→03:33)
[2018-06-14 04:50] VITALS: BP 117/67
== END 2018-06-14 04:54 | disposition short-term general hospital (02) ==
LOC: ED 02:52
DX: G40.909 Epilepsy, unspecified, not intractable, without status epilepticus (principal); R51 Headache; Z72.820 Sleep deprivation
CPT/HCPCS: 36415; 80048; 80177; 84702; 85025; 96361; 96374; 99283

== ENCOUNTER → 2018-06-14 02:54 | Emergency (ER) | payer SELFPAY | END | disposition left against medical advice (07) | LOC: ED 02:54 | DX: R56.9 Unspecified convulsions (principal); Z53.21 Procedure and treatment not carried out due to patient leaving prior to being seen by health care provider ==

== ENCOUNTER 2019-01-07 17:08 | Inpatient (IN) | payer OTHER ==
--- NOTE | 2019-01-07 17:42 | ED ---
Psychiatric Complaint - HPI Summary HPI Summary: This patient is a 23 year old female persenting to [facility] with a chief complaint of suicidal ideation. Pt stated that she is feeling really sad. She stated that was found sitting on a ledge of the bridge over [place] when someone stopped and talked her down and brought her here. Pt denies any fever, chills, erythema of eyes, sore throat, CP, SOB, cough, abdominal pain, N/V, dysuria, hematuria, myalgia, edema, rash, or dizziness. - History Of Current Complaint Chief Complaint: EDSuicidal Time Seen by Provider: 01/07/19 17:28 Hx Obtained From: Patient Hx Last Menstrual Period: 08/11/17 Character: Depressed - Allergies/Home Medications Allergies/Adverse Reactions: Allergies Allergy/AdvReac Type Severity Reaction Status Date / Time codeine Allergy Hives Verified 01/07/19 17:09 dextromethorphan Allergy Hives Verified 01/07/19 17:09 [From Cheracol D] guaifenesin [From Cheracol D] Allergy Hives Verified 01/07/19 17:09 hydrocodone [From Vicodin] Allergy Hives Verified 01/07/19 17:09 hydrocortisone Allergy Hives Verified 01/07/19 17:09 [From Hydrocortone] midazolam Allergy Anaphylatic Verified 01/07/19 17:09 Shock tramadol Allergy Swelling Verified 01/07/19 17:09 Of Face,Lips,& Throat Home Medications: Home Medications Albuterol HFA INHALER* [Ventolin HFA Inhaler*] 2 puff INH Q4H PRN 01/07/19 [ History Confirmed 01/07/19] Topiramate TAB(*) [Topamax 25 MG tab] 50 mg PO BID 01/07/19 [History Confirmed 01/07/19] levETIRAcetam TAB* [Keppra TAB*] 500 mg PO BID 01/07/19 [History Confirmed 01/07] PMH/Surg Hx/FS Hx/Imm Hx Endocrine/Hematology History: Denies: Hx Diabetes, Hx Thyroid Disease Cardiovascular History: Denies: Hx Hypertension, Hx Pacemaker/ICD Respiratory History: Reports: Hx Asthma - MEDS NEEDED, Hx Pneumonia Denies: Hx Chronic Obstructive Pulmonary Disease (COPD) GI History: Denies: Hx Ulcer History: Denies: Hx Renal Disease Sensory History: Denies: Hx Contacts or Glasses, Hx Hearing Aid Opthamlomology History: Denies: Hx Contacts or Glasses Neurological History: Reports: Hx Seizures, 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 acl reconstruction RIGHT KNEE - Immunization History Date of Tetanus Vaccine: UTD Infectious Disease History: No Infectious Disease History: Denies: Hx Clostridium Difficile, Hx Hepatitis, Hx Human Immunodeficiency Virus (HIV), Hx of Known/Suspected MRSA, Hx Shingles, Hx Tuberculosis, Hx Known/ Suspected VRE, Hx Known/Suspected VRSA, History Other Infectious Disease, Traveled Outside the [place] in Last 30 Days - Family History Known Family History: Negative: Cardiac Disease Family History: copd. asthma - Social History Alcohol Use: None Hx Substance Use: No Substance Use Type: Reports: None Hx Tobacco Use: No Smoking Status (MU): Never Smoked Tobacco Review of Systems Negative: Fever, Chills Negative: Erythema Negative: Sore Throat Negative: Chest Pain Negative: Shortness Of Breath, Cough Negative: Abdominal Pain, Vomiting, Nausea Negative: dysuria, hematuria Negative: Myalgia, Edema Negative: Rash Neurological: Other - Neg: Dizziness Positive: Depressed All Other Systems Reviewed And Are Negative: No Physical Exam - Summary Physical Exam Summary: Constitutional: Well-developed, Well-nourished, Alert. (-) Distressed Skin: Warm, Dry HENT: Normocephalic; Atraumatic Eyes: Conjunctiva normal Neck: Musculoskeletal ROM normal neck. (-) JVD, (-) Stridor, (-) Tracheal deviation Cardio: Rhythm regular, rate normal, Heart sounds normal; Intact distal pulses; The pedal pulses are 2+ and symmetric. Radial pulses are 2+ and symmetric. (-) Murmur Pulmonary/Chest wall: Effort normal. (-) Respiratory distress, (-) Wheezes, (-) Rales Abd: Soft, (-) tenderness, (-) Distension, (-) Guarding, (-) Rebound Musculoskeletal: (-) Edema Lymph: (-) Cervical adenopathy Neuro: Alert, Oriented x3 Psych: Mood and affect Normal Triage Information Reviewed: Yes Vital Signs On Initial Exam: Initial Vitals Temp Pulse Resp BP Pulse Ox 99.9 F 106 18 136/95 99 01/07/19 17:10 01/07/19 17:10 01/07/19 17:10 01/07/19 17:10 01/07/19 17:10 Vital Signs Reviewed: Yes Diagnostics - Vital Signs Vital Signs Temp Pulse Resp BP Pulse Ox 01/07/19 17:10 99.9 F 106 18 136/95 99 - Laboratory Result Diagrams: 01/07/19 17:41 01/07/19 17:41 Lab Statement: Any lab studies that have been ordered have been reviewed, and results considered in the medical decision making process. Course/Dx - Course Course Of Treatment: This patient is a 23 year old female persenting to [facility] with a chief complaint of suicidal ideation. Patient cleared for [facility]. Dr. Wheatley , Psychiatry, will voluntarily admit the patient with a diagnosis of depressive disorder. - Differential Dx/Clinical Impression Provider Diagnosis: Depressive disorder Discharge ED - Sign-Out/Discharge Documenting (check all that apply): Patient Departure - Voluntary admission, per [facility] Patient Received Moderate/Deep Sedation with Procedure: No - Discharge Plan Condition: Stable Disposition: [place]ATRIC [place] [place] Referrals: Vini Gregorio NP [Nurse Practitioner] - - Attestation Statements Document Initiated by Scribe: Yes Documenting Scribe: Domenic Hernandez Provider For Whom Scribe is Documenting (Include Credential): Pérez Hernandes MD Scribe Attestation: Domenic Mckeon, scribed for Préez Hernandes MD on 01/07/19 at 2211. Status of Scribe Document: Ready
[2019-01-07 17:47] LABS: ABS Monocytes 0.3 10^3/ul (0-0.8); ABS Neutrophils 6.1 10^3/ul (1.5-7.7); Eosinophil % 0.2 %; Hematocrit 37 % (35-47); Hemoglobin 12.4 g/dL (12.0-16.0); Lymphocyte % 13.1 %; Mean Corpuscular HGB Conc 33 g/dL (31-36); Mean Corpuscular Hemoglobin 27 pg (27-31); Mean Corpuscular Volume 82 fL (80-97); Platelet Count 227 10^3/uL (150-450); Red Blood Count 4.55 10^6 /uL (3.70-4.87); Red Cell Distribution Width 17 % (10-15); White Blood Count 7.5 10^3/uL (3.5-10.8)
[2019-01-07 17:55] LABS: Urine Appearance Cloudy; Urine Bacteria Absent (Absent); Urine Bilirubin Negative (Negative); Urine Blood Negative (Negative); Urine Color Amber; Urine Glucose Negative (Negative); Urine Ketones 1+ (Negative); Urine Nitrite Negative (Negative); Urine Protein 1+(30 mg/dL) (Negative); Urine Red Blood Cell 1+(3-5/hpf) (Absent); Urine Specific Gravity 1.028 (1.010-1.030); Urine Squamous Epithelial Cell Present (Absent); Urine Urobilinogen Negative (Negative); Urine White Blood Cell 1+(6-10/hpf) (Absent)
[2019-01-07 18:03] LABS: ALT 10 U/L (7-52); AST 19 U/L (13-39); Albumin 4.9 g/dL (3.2-5.2); Albumin/Globulin Ratio 1.9 (1-3); Alkaline Phosphatase 77 U/L (34-104); Anion Gap 11 mmol/L (2-11); BUN/Creatinine Ratio 22.2 (8-20); Blood Urea Nitrogen 20 mg/dL (6-24); CO2 Carbon Dioxide 19 mmol/L (22-32); Calcium 9.6 mg/dL (8.6-10.3); Chloride 109 mmol/L (101-111); EGFR African American 93.1 (>60); EGFR Non-African American 76.9 (>60); Globulin 2.6 g/dL (2-4); Glucose 106 mg/dL (70-100); Potassium 3.7 mmol/L (3.5-5.0); Sodium 139 mmol/L (135-145); Total Protein 7.5 g/dL (6.4-8.9)
[2019-01-07 18:08] LABS: Urine Benzodiazepine Screen None Detected (None Detect); Urine Opiates Screen None Detected (None Detect)
[2019-01-07 18:38] LABS: Acetaminophen < 15 mcg/mL; Alcohol < 10 mg/dL (<10); Salicylate < 2.50 mg/dL (<30)
[2019-01-07 18:53] LABS: TSH (Thyroid Stimulating Horm) 0.77 mcIU/mL (0.34-5.60)
[2019-01-08] MEDS ORDERED: Al Hydrox/Mg Hydrox/Simet LIQ* 30 ML UDC PO PRN (00:27)
[2019-01-08] MEDS: Acetaminophen TAB* 325 MG PO PRN (00:45)
[2019-01-08] MEDS: levETIRAcetam TAB* 500 MG PO SCH (19:01)
[2019-01-08] MEDS: hydrOXYzine HCL TAB* 50 MG PO PRN (19:01)
[2019-01-08] MEDS: Topiramate TAB(*) 25 MG PO SCH (19:01)
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
[2019-01-09] MEDS: Vitamin THERAPEUTIC TAB PO SCH ×3 (07:30→08:44)
[2019-01-09] MEDS: Topiramate TAB(*) 25 MG PO SCH ×2 (08:43→20:23)
[2019-01-09] MEDS: Sertraline* 25 MG TAB PO SCH (08:44)
[2019-01-09] MEDS: levETIRAcetam TAB* 500 MG PO SCH ×2 (08:44→20:23)
[2019-01-09] MEDS: hydrOXYzine HCL TAB* 50 MG PO PRN (17:37)
[2019-01-10] MEDS: Topiramate TAB(*) 25 MG PO SCH ×2 (08:28→20:37)
[2019-01-10] MEDS: levETIRAcetam TAB* 500 MG PO SCH ×2 (08:28→20:37)
[2019-01-10] MEDS: Vitamin THERAPEUTIC TAB PO SCH (08:29)
[2019-01-10] MEDS: Sertraline* 25 MG TAB PO SCH (08:29)
[2019-01-10] MEDS: Acetaminophen TAB* 325 MG PO PRN (08:30)
--- NOTE | 2019-01-10 16:39 | PN ---
Subjective - Subjective Date of Service: 01/10/19 Service Type: 54342 Hosp care 25 min moderate complexity Subjective: Patient reports sad mood and endorses excessive guilt. She states she is having a difficult time with communicating with her mother. She goes on to describe desire for emotional support but feels criticized. She states that the groups are helpful in that she is being reminded of coping skills she used to utilize prior to motherhood. Objective - General Observations Appearance: Well Groomed Stature: WNL Posture: Slumped Eye Contact: Average Behavior/Activity: WNL - Interaction Observations Attitude Towards Examiner: Cooperative Stated Mood: Dysphoric Affect: Blunted Speech Pattern/Tone: Clear, Appropriate, Quiet Volume Thought Process: Coherent, Circumstantial, Racing Perception: WNL Thought Content: Depressive, Self-Deprecatory Thought Process: Lethality: Passive Wish Hallucination Type: None Delusion Type: None - Cognitive Function Orientation: A&O x 4 Level of Consciousness: Alert Cognition: WNL Estimated Intelligence: Normal Insight: WNL Judgment Within Normal Limits: No Ability to Make Reasonable Decisions: Moderately Impaired - Medication Compliance Cooperative with Inpatient Medication Regimen: Yes - Group Participation Participates in Group Activities: Yes Assessment - Assessment Merits Inpatient Hospitalization: For Immediate Safety, For Stabilization Inpatient DSM-V Dx: F33.1 Clinical Impression: 23yo female, domiciled, employed, mother of two small children who presented to the ED after a suicide attempt that was interrupted by a passerby. She is tolerating medication changes and participating in programming. She merits hospitalization for immediate safety and stabilization. Plan - Plan Treatment Plan: Name: WINDY SULLIVAN Birthdate: 1995 [id number] continue acute intensive psychiatric treatment. increase sertraline to 50mg daily, continue other medications as ordered. obtain labs in AM: keppra trough, hbga1c and lipid panel. discharge to include primary care and outpatient MH referrals Continued Medication Management: Start Medication Medications: Current Medications Acetaminophen (Tylenol Tab*) 650 mg PO Q4H PRN PRN Reason: PAIN or TEMP > 101 F Last Admin: 01/10/19 08:30 Dose: 650 mg Al Hydrox/Mg Hydrox/Simethicone (Maalox Plus*) 30 ml PO Q4H PRN PRN Reason: INDIGESTION Hydroxyzine HCl (Atarax Tab*) 50 mg PO Q6H PRN PRN Reason: SEE COMMENTS Last Admin: 01/09/19 17:37 Dose: 50 mg Levetiracetam (Keppra Tab*) 500 mg PO BID [facility] Last Admin: 01/10/19 08:28 Dose: 500 mg Multivitamins (Theragran Tab*) 1 tab PO DAILY [facility] Last Admin: 01/10/19 08:29 Dose: 1 tab Topiramate (Topamax(*)) 50 mg PO BID [facility] Last Admin: 01/10/19 08:28 Dose: 50 mg - Discharge Plan Discharge Plan: Inpatient Hospitalization
[2019-01-10] MEDS: hydrOXYzine HCL TAB* 50 MG PO PRN (18:43)
[2019-01-11] MEDS: Topiramate TAB(*) 25 MG PO SCH ×2 (09:05→20:32)
[2019-01-11] MEDS: Vitamin THERAPEUTIC TAB PO SCH (09:05)
[2019-01-11] MEDS: Sertraline* 50 MG TAB PO SCH (09:05)
[2019-01-11] MEDS ORDERED: Influenza VAC *QUAD* 2019-20* 0.5 ML SYRINGE IM ONE (10:00)
[2019-01-11] MEDS: levETIRAcetam TAB* 500 MG PO SCH ×2 (11:20→20:32)
[2019-01-11] MEDS: Acetaminophen TAB* 325 MG PO PRN (11:20)
--- NOTE | 2019-01-11 16:21 | PN ---
Subjective - Subjective Date of Service: 01/11/19 Service Type: 91356 Hosp care 15 min low complexity Subjective: Windy presents as euthymic with bright affect. She reports feeling more hopeful and has goals for self-advocacy at home and work. She reports headache and nausea and states understanding that these are likely transient side effects from sertraline. She denies suicidal ideation, passive wish and states she does not want to return to point of desperation that she was in prior to admission. Objective - General Observations Appearance: Well Groomed Stature: WNL Posture: WNL Eye Contact: Average Behavior/Activity: WNL - Interaction Observations Attitude Towards Examiner: Cooperative Stated Mood: Euthymic Affect: Bright Speech Pattern/Tone: Clear, Appropriate, Normal Volume Thought Process: Coherent, Goal Directed Perception: WNL Thought Content: WNL Hallucination Type: None Delusion Type: None - Cognitive Function Orientation: A&O x 4 Level of Consciousness: Alert Cognition: WNL Estimated Intelligence: Normal Insight: WNL Judgment Within Normal Limits: Yes - Medication Compliance Cooperative with Inpatient Medication Regimen: Yes - Group Participation Participates in Group Activities: Yes Assessment - Assessment Merits Inpatient Hospitalization: For Immediate Safety, For Stabilization, For Discharge Planning Inpatient DSM-V Dx: F33.1 Clinical Impression: 23yo female, domiciled, employed, mother of two small children who presented to the ED after a suicide attempt that was interrupted by a passerby. She is tolerating medication changes and participating in programming. She merits hospitalization for immediate safety, stabilization and discharge planning. Plan - Plan Treatment Plan: Name: WINDY SULLIVAN Birthdate: 1995 [id number] continue acute intensive psychiatric treatment. may decrease to q30min and allow staff pass. continue medications as ordered. obtain labs in AM: lipid panel. keppra level pending. discharge to include primary care and outpatient MH referrals Medications: Current Medications Acetaminophen (Tylenol Tab*) 650 mg PO Q4H PRN PRN Reason: PAIN or TEMP > 101 F Last Admin: 01/11/19 11:20 Dose: 650 mg Al Hydrox/Mg Hydrox/Simethicone (Maalox Plus*) 30 ml PO Q4H PRN PRN Reason: INDIGESTION Hydroxyzine HCl (Atarax Tab*) 50 mg PO Q6H PRN PRN Reason: SEE COMMENTS Last Admin: 01/10/19 18:43 Dose: 50 mg Levetiracetam (Keppra Tab*) 500 mg PO BID [facility] Last Admin: 01/11/19 11:20 Dose: 500 mg Multivitamins (Theragran Tab*) 1 tab PO DAILY [facility] Last Admin: 01/11/19 09:05 Dose: 1 tab Sertraline HCl (Zoloft*) 50 mg PO DAILY [facility] Last Admin: 01/11/19 09:05 Dose: 50 mg Topiramate (Topamax(*)) 50 mg PO BID [facility] Last Admin: 01/11/19 09:05 Dose: 50 mg - Discharge Plan Discharge Plan: Inpatient Hospitalization
[2019-01-12 07:46] VITALS: BP 105/68
[2019-01-12 08:48] LABS: Cholesterol 216 mg/dL; HDL Cholesterol 40.9 mg/dL; LDL Cholesterol 155 mg/dL; Triglycerides 102 mg/dL
[2019-01-12] MEDS: Topiramate TAB(*) 25 MG PO SCH (09:04)
[2019-01-12] MEDS: levETIRAcetam TAB* 500 MG PO SCH (09:05)
[2019-01-12] MEDS: Vitamin THERAPEUTIC TAB PO SCH (09:05)
[2019-01-12] MEDS: Sertraline* 50 MG TAB PO SCH (09:05)
--- NOTE | 2019-01-12 11:11 | DCNOTE ---
Subjective - Subjective Service Types: 71689 Hosp DC Day Mgmt simple under 30 min Discharge Date: 01/12/19 Subjective: Patient reports mild anxiety in regards to returning home. Feelings validated and normalized. She denies SI or passive wish. She endorses feeling grateful for passerby who interrupted the suicide attempt and for treatment received in the hospital. She states she is looking forward to being home with her children. 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 Objective - General Observations Appearance: Well Groomed Stature: WNL Posture: WNL Eye Contact: Average Behavior/Activity: WNL - Interaction Observations Attitude Towards Examiner: Cooperative Stated Mood: Euthymic Affect: Full Speech Pattern/Tone: Clear, Appropriate, Normal Volume Thought Process: Coherent, Goal Directed Perception: WNL Thought Content: WNL Hallucination Type: None Delusion Type: None - Cognitive Function Orientation: A&O x 4 Level of Consciousness: Alert Cognition: WNL Estimated Intelligence: Normal Insight: WNL Judgment Within Normal Limits: Yes - Medication Compliance Cooperative with Inpatient Medication Regimen: Yes - Group Participation Participates in Group Activities: Yes DC Assessment - Assessment Clinical Impression: 23yo female, domiciled, employed, mother of two small children who presented to the ED after a suicide attempt that was interrupted by a passerby. She is tolerating medication changes and participating in programming. She has stabilized in this structured setting and agrees to continue with outpatient referrals. Merits Inpatient Hospitalization: No Clear for Discharge: Adequate Clinical Respons, Acceptable Safety Profile Inpatient DSM-V Dx: F33.1 Discharge Planning - Discharge Planning Discharge Plan: Outpatient Follow Up Out[facility] Recommendations for Continuing Care: Medication Management, Psychotherapy, Primary Care Followup, Specialty Followup Medications: Current Medications Hydroxyzine HCl (Atarax Tab*) 50 mg PO Q6H PRN PRN Reason: SEE COMMENTS Last Admin: 01/10/19 18:43 Dose: 50 mg Levetiracetam (Keppra Tab*) 500 mg PO BID [facility] Last Admin: 01/12/19 09:05 Dose: 500 mg Multivitamins (Theragran Tab*) 1 tab PO DAILY [facility] Last Admin: 01/12/19 09:05 Dose: 1 tab Sertraline HCl (Zoloft*) 50 mg PO DAILY [facility] Last Admin: 01/12/19 09:05 Dose: 50 mg Topiramate (Topamax(*)) 50 mg PO BID [facility] Last Admin: 01/12/19 09:04 Dose: 50 mg Discharge Planning: Prescriptions provided for discharge [x] Yes [] No Follow up care details as per social work arrangements: [employer] primary care and neurology [facility] Patient response to discharge plan: [x] eager for discharge [x] agreeable with discharge plan [] ambivalent about discharge [] disagrees with discharge today
[2019-01-12 11:44] LABS: HCG Pregnancy < 0.60 mIU/mL
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
== END 2019-01-12 12:40 | disposition home or self-care (01) | DRG 751 ==
LOC: ED 17:08 → BSU 22:06
PROVIDERS: ADMIT Psychiatry & Neurology Psychiatry; ATTEND Psychiatry & Neurology Psychiatry
DX: F33.1 Major depressive disorder, recurrent, moderate (principal); R45.851 Suicidal ideations; G40.909 Epilepsy, unspecified, not intractable, without status epilepticus; J45.909 Unspecified asthma, uncomplicated; Z62.810 Personal history of physical and sexual abuse in childhood; F41.9 Anxiety disorder, unspecified; Z79.899 Other long term (current) drug therapy; Z79.51 Long term (current) use of inhaled steroids
CPT/HCPCS: 36415; 80053; 80061; 80177; 80307; 80320; 80329; 81003; 81015; 83036; 84443; 84702; 85025; 87086; 90686; 99222; 99231; 99232; 99285; A9270-GY; G0480

== ENCOUNTER 2019-06-22 04:45 | Emergency (ER) | payer OTHER ==
--- NOTE | 2019-06-22 04:59 | ED ---
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 The patient's seizure reportedly occurred while she was at work and lasted 1 minute. Patient reports a fever and vomiting 3 days ago. The patient rates the pain 4/10 in severity. She is fatigued in the ED. Symptoms aggravated by nothing. Symptoms alleviated by nothing. The patient has a history of seizures and states that she has been taking her medication, Keppra. She last had a seizure in May 2018. She believes this episode may have been due to lack of sleep over the last few days. She denies any active history of smoking or marijuana use. Medication list reviewed. Allergy list reviewed. - History Of Current Complaint Chief Complaint: EDSeizure Time Seen by Provider: 06/22/19 04:47 Hx Obtained From: Patient Onset/Duration: Sudden Onset Timing: Seconds - one minute Severity Currently: Mild Severity Initially: Moderate Aggravating Factor(s): nothing Alleviating Factor(s): nothing Associated Signs And Symptoms: Positive: Vomiting, Fever, Other - seizure, fatigue - Allergies/Home Medications Allergies/Adverse Reactions: Allergies Allergy/AdvReac Type Severity Reaction Status Date / Time codeine Allergy Hives Verified 06/22/19 04:54 dextromethorphan Allergy Hives Verified 06/22/19 04:54 [From Cheracol D] guaifenesin [From Cheracol D] Allergy Hives Verified 06/22/19 04:54 hydrocodone [From Vicodin] Allergy Hives Verified 06/22/19 04:54 hydrocortisone Allergy Hives Verified 06/22/19 04:54 [From Hydrocortone] midazolam Allergy Anaphylatic Verified 06/22/19 04:54 Shock tramadol Allergy Swelling Verified 06/22/19 04:54 Of Face,Lips,& Throat Home Medications: Home Medications Topiramate TAB(*) [Topamax 25 MG tab] 50 mg PO BID 01/07/19 [History Confirmed 06/22/19] Sertraline* [Zoloft*] 50 mg PO DAILY #30 tab 01/12/19 [Rx Confirmed 06/22/19] Vitamin THERAPEUTIC TAB* [Theragran TAB*] 1 tab PO DAILY tab 01/12/19 [Rx Confirmed 06/22/19] levETIRAcetam TAB* [Keppra TAB*] 500 mg PO BID tab 01/12/19 [Rx Confirmed 06/21] Albuterol HFA INHALER* [Ventolin HFA Inhaler*] 2 puff INH Q4H PRN #1 mdi [Rx Confirmed 06/22/19] PMH/Surg Hx/FS Hx/Imm Hx Endocrine/Hematology History: Denies: Hx Diabetes, Hx Thyroid Disease Cardiovascular History: Reports: Other Cardiovascular Problems/Disorders - Hx Tachycardia Denies: Hx Hypertension, Hx Pacemaker/ICD Respiratory History: Reports: Hx Asthma - MEDS NEEDED, Hx Pneumonia Denies: Hx Chronic Obstructive Pulmonary Disease (COPD) GI History: Denies: Hx Ulcer History: Denies: Hx Renal Disease Sensory History: Denies: Hx Contacts or Glasses, Hx Hearing Aid Opthamlomology History: Denies: Hx Contacts or Glasses Neurological History: Reports: Hx Seizures, Other Neuro Impairments/Disorders - post concussion syndrome with seizure like activity Denies: Hx Dementia, Hx Developmental Delay, Hx Headaches, Hx Migraine, Hx Nerve Disease, Hx Spinal Cord Injury, Hx Transient Ischemic Attacks (TIA) Psychiatric History: Denies: Hx Eating Disorder, Hx Panic Disorder - Surgical History Surgery Procedure, Year, and Place: t&a. acl reconstruction RIGHT KNEE - Immunization History Date of Tetanus Vaccine: UTD Infectious Disease History: No Infectious Disease History: Denies: Hx Clostridium Difficile, Hx Hepatitis, Hx Human Immunodeficiency Virus (HIV), Hx of Known/Suspected MRSA, Hx Shingles, Hx Tuberculosis, Hx Known/ Suspected VRE, Hx Known/Suspected VRSA, History Other Infectious Disease, Traveled Outside the [place] in Last 30 Days - Family History Known Family History: Positive: Respiratory Disease Negative: Cardiac Disease Family History: copd. asthma - Social History Alcohol Use: Rare Hx Substance Use: No Substance Use Type: Reports: None Hx Tobacco Use: No Smoking Status (MU): Never Smoked Tobacco - Additional Comments History Additional Comments: Seizures. Review of Systems - ROS Summary Review of Systems Summary: Home Medications Medication Instructions Recorded Confirmed Type Topiramate TAB(*) [Topamax 25 MG 50 mg PO BID 01/07/19 05/30/19 History tab] Sertraline* [Zoloft*] 50 mg PO DAILY #30 tab 01/12/19 05/30/19 Rx Vitamin THERAPEUTIC TAB* 1 tab PO DAILY tab 01/12/19 05/30/19 Rx [Theragran TAB*] levETIRAcetam TAB* [Keppra TAB*] 500 mg PO BID tab 01/12/19 05/30/19 Rx Albuterol HFA INHALER* [Ventolin 2 puff INH Q4H PRN #1 mdi 05/30/19 Rx HFA Inhaler*] Positive: Fever, Fatigue Positive: Vomiting Neurological/Mental Status: Other - Seizure All Other Systems Reviewed And Are Negative: Yes Physical Exam - Summary Physical Exam Summary: General: Well-developed, Well-nourished female. No acute distress. HEENT: Normocephalic, Atraumatic. Eyes: Conjuctiva normal, PERRL. Oropharynx: Clear, mucous membranes moist, (-) exudates. Neck: Soft, FROM, (-) lymphadenopathy, (-) thyromegaly, (-) JVD. Cardiovascular: Normal sinus rhythm, (-) murmur. Lungs: Clear to auscultation bilaterally (-) wheezes, (-) rales, (-) rhonchi. Abdomen: Soft, non-tender, non-distended, (-) organomegaly, normal bowel sounds. Back: (-) CVA tenderness Extremities: No edema. Skin: Warm, dry, (-) rash. Neuro: Alert but sluggish, oriented x3, moves all extremities equally. No ataxia. No gait disturbance. No sensory deficit. Normal strength, normal sensation. Psychiatric: Mood normal, affect flat. Triage Information Reviewed: Yes Vital Signs On Initial Exam: Initial Vitals Temp Pulse Resp BP Pulse Ox 97.9 F 99 16 132/75 100 06/22/19 04:46 06/22/19 04:46 06/22/19 04:46 06/22/19 04:46 06/22/19 04:46 Vital Signs Reviewed: Yes Procedures - Sedation Patient Received Moderate/Deep Sedation with Procedure: No Diagnostics - Vital Signs Vital Signs Temp Pulse Resp BP Pulse Ox 06/22/19 04:46 97.9 F 99 16 132/75 100 - Laboratory Result Diagrams: 06/22/19 05:38 06/22/19 05:38 Lab Statement: Any lab studies that have been ordered have been reviewed, and results considered in the medical decision making process. Complex Multi-Symp Course/Dx Course Of Treatment: 24-year-old female presents by ambulance from work where she was reported as having a seizure. Patient has known history of seizures. States she takes Keppra and has been taking as prescribed. She does know she has been sick over the weekend. Had some vomiting on Thursday. Decreased intake of the last 2 days. She also states she has been sleeping poorly the last couple nights. She denies any current fevers. Denies any known trauma. Denies any alcohol or drug use. Patient states she feels sluggish otherwise okay. No current headache. No visual changes. No tingling numbness or weakness in any extremity. No significant findings on physical exam. Workup was essentially negative except as slightly low potassium level. Patient was given IV fluids. By mouth potassium. Feeling better. Discharged to home. Keppra level is pending. Follow-up with PCP. Follow-up sooner for any worsening symptoms. - Diagnoses Provider Diagnoses: Seizure Discharge ED - Sign-Out/Discharge Documenting (check all that apply): Patient Departure - discharge - Discharge Plan Condition: Stable Disposition: HOME Patient Education Materials: Epilepsy (ED) Referrals: [facility] [Outside] - 3 Days Additional Instructions: Please follow up with your primary care physician within three days. Please return to ED for any new or worsening symptoms. - Billing Disposition and Condition Condition: STABLE Disposition: Home - Attestation Statements Document Initiated by Mari: Yes Documenting Scribe: Avis Vivas Provider For Whom Mair is Documenting (Include Credential): Susan Basilio MD Scribe Attestation: Shruti Mckeon Natalie George, rodibed for Susan Basilio MD on 06/22/19 at 1934. Scribe Documentation Reviewed: Yes Provider Attestation: The documentation as recorded by the Shruti mahoney Natalie George accurately reflects the service I personally performed and the decisions made by me, Susan Basilio MD Status of Scribe Document: Viewed
[2019-06-22] MEDS ORDERED: NS 0.9% 1000 ML** 1,000 ML IV ONE (05:12)
[2019-06-22 05:56] LABS: INR 1.04 (0.82-1.09)
[2019-06-22 06:00] LABS: ABS Lymphocytes 1.4 10^3/ul (1.0-4.8); ABS Monocytes 0.4 10^3/ul (0-0.8); ABS Neutrophils 1.1 10^3/ul (1.5-7.7); Eosinophil % 1.2 %; Hematocrit 34 % (35-47); Hemoglobin 10.9 g/dL (12.0-16.0); Lymphocyte % 46.4 %; Mean Corpuscular HGB Conc 32 g/dL (31-36); Mean Corpuscular Hemoglobin 27 pg (27-31); Mean Corpuscular Volume 83 fL (80-97); Mean Platelet Volume 8.4 fL (7.4-10.4); Nucleated Red Blood Cells % 0.2; Platelet Count 175 10^3/uL (150-450); Red Blood Count 4.04 10^6 /uL (3.70-4.87); Red Cell Distribution Width 15 % (10-15); White Blood Count 3.1 10^3/uL (3.5-10.8)
[2019-06-22 06:34] LABS: Alcohol < 10 mg/dL (<10)
[2019-06-22 06:35] LABS: Albumin 3.8 g/dL (3.2-5.2); Anion Gap 11 mmol/L (2-11); CO2 Carbon Dioxide 23 mmol/L (22-32); Calcium 8.8 mg/dL (8.6-10.3); Chloride 105 mmol/L (101-111); Magnesium 1.7 mg/dL (1.9-2.7); Potassium 3.3 mmol/L (3.5-5.0); Sodium 139 mmol/L (135-145)
[2019-06-22] MEDS ORDERED: Potassium Chlor TAB* 20 MEQ TAB.ER PO ONE (06:36)
[2019-06-22 06:41] LABS: ALT 11 U/L (7-52); AST 18 U/L (13-39); Albumin/Globulin Ratio 1.8 (1-3); Alkaline Phosphatase 51 U/L (34-104); BUN/Creatinine Ratio 20.5 (8-20); Blood Urea Nitrogen 15 mg/dL (6-24); EGFR African American 117.5 (>60); EGFR Non-African American 97.1 (>60); Globulin 2.1 g/dL (2-4); Glucose 88 mg/dL (70-100); Total Protein 5.9 g/dL (6.4-8.9)
[2019-06-22 07:11] VITALS: BP 117/76
--- NOTE | 2019-06-24 07:17 | ED ---
Imaging and Labs Follow Up Follow Up Type: Labs/Cultures Labs/Culture Result: Levetiracetam level low Patient was told to [facility] with [facility] This level available to them for review Patient Communication/Plan: patient to [facility] with [facility] Patient Communication/Plan: Patient told to follow up with PCP regarding seizure Provider Diagnoses: Seizure
== END 2019-06-22 07:10 | disposition home or self-care (01) ==
LOC: ED 04:45
DX: R56.9 Unspecified convulsions (principal); R53.83 Other fatigue; R50.9 Fever, unspecified; J45.909 Unspecified asthma, uncomplicated; Z79.51 Long term (current) use of inhaled steroids; Z88.5 Allergy status to narcotic agent; Z88.8 Allergy status to other drugs, medicaments and biological substances
CPT/HCPCS: 36415; 80053; 80177; 80320; 83605; 83735; 85025; 85610; 96360; 99282; A9270-GY; G0480

== ENCOUNTER 2020-02-29 16:19 | Inpatient (IN) ==
[2020-02-29 17:04] LABS: Hematocrit 31 % (35-47); Hemoglobin 10.1 g/dL (12.0-16.0); Mean Corpuscular HGB Conc 32 g/dL (31-36); Mean Corpuscular Hemoglobin 25 pg (27-31); Mean Corpuscular Volume 76 fL (80-97); Mean Platelet Volume 9.3 fL (7.4-10.4); Platelet Count 186 10^3/uL (150-450); Red Blood Count 4.13 10^6 /uL (3.70-4.87); Red Cell Distribution Width 15 % (10-15)
[2020-02-29 17:05] LABS: Platelet Count 186 10^3/ul (150-450)
[2020-02-29] MEDS ORDERED: OBEPIDURAL 250 ML EPIDURAL ONE (17:14)
[2020-02-29] MEDS ORDERED: Lactated Ringers 1000 ml BAG 1,000 ML IV ONE ×3 (17:19→18:42)
[2020-02-29] MEDS ORDERED: Buffered Lidocaine 1% SYRIN 1 ml INTRADERM ONE (17:19)
[2020-02-29 17:42] LABS: Urine Benzodiazepine Screen None Detected (None Detect); Urine Cannabinoids Screen None Detected (None Detect); Urine Opiates Screen None Detected (None Detect)
[2020-02-29 17:47] LABS: Activated Partial Thrombo Time 25.2 seconds (26.0-38.0); Fibrinogen 542.3 mg/dL (110.8-404.3); INR 1.03 (0.82-1.09); Schistocytes ABSENT
[2020-02-29] MEDS ORDERED: Lactated Ringers 1000 ml BAG 1,000 ML IV SCH ×3 (18:00→23:00)
[2020-02-29] MEDS ORDERED: Lactated Ringers 1000 ml BAG 500 ML IV PRN ×2 (18:42)
[2020-02-29] MEDS ORDERED: Sodium Citrate/Citric Acid LIQ 15 ML UDC PO PRN (18:42)
[2020-02-29] MEDS ORDERED: Phenylephrine 40 mcg/mL 10mL (400mcg) SYRINGE IV PUSH PRN (18:42)
[2020-02-29] MEDS ORDERED: OBEPIDURAL 250 ML EPIDURAL SCH (19:00)
[2020-02-29] MEDS: Phenylephrine 40 mcg/mL 10mL (400mcg) SYRINGE IV PUSH PRN ×3 (19:12→21:22)
[2020-02-29] MEDS ORDERED: Albuterol HFA INHALER 8 gm MDI INH PRN (19:13)
[2020-02-29] MEDS ORDERED: Oxytocin in LR 20 UNITS/1,000 ML BAG IVPB SCH (21:00)
[2020-02-29] MEDS ORDERED: Witch Hazel PAD JAR TOPICAL PRN (22:40)
[2020-02-29] MEDS ORDERED: Dibucaine 1% OINT 28.35 GM TUBE PR PRN (22:40)
[2020-03-01 06:47] LABS: ABS Monocytes 0.8 10^3/ul (0-0.8); ABS Neutrophils 10.3 10^3/ul (1.5-7.7); Hematocrit 29 % (35-47); Hemoglobin 9.4 g/dL (12.0-16.0); Lymphocyte % 8.3 %; Mean Corpuscular HGB Conc 33 g/dL (31-36); Mean Corpuscular Hemoglobin 25 pg (27-31); Mean Corpuscular Volume 75 fL (80-97); Mean Platelet Volume 9.1 fL (7.4-10.4); Platelet Count 172 10^3/uL (150-450); Red Blood Count 3.82 10^6 /uL (3.70-4.87); Red Cell Distribution Width 15 % (10-15); White Blood Count 12.2 10^3/uL (3.5-10.8)
[2020-03-02 08:03] VITALS: BP 113/71
== END 2020-03-02 12:20 | disposition home or self-care (01) | DRG 560 ==
LOC: MCHOBOUT 16:19 → MCHOB 16:44
PROVIDERS: ADMIT Obstetrics & Gynecology; ATTEND Obstetrics & Gynecology